=== PATIENT | male | born 1955 | race Caucasian/White ===

== ENCOUNTER 2016-07-19 18:21 | Emergency (ER) | payer MEDICAID ==
--- NOTE | 2016-07-19 19:00 | EDPRACDOC ---
- General Information Stated Complaint: CHEST PAIN Time Seen by Provider: 07/19/16 18:38 Home Medications: Home Medications Ageless Male 2 tab PO .DAILY SEE COMMENTS 05/15/14 Vitamin E [Vitamin E 400 International Units Per Cap] 400 unit PO .SEE COMMENTS 05/15/14 See Comments 0 mg PO .SEE COMMENTS 05/29/16 Allergies/Adverse Reactions: Allergies Allergy/AdvReac Type Severity Reaction Status Date / Time hydrocodone [Hydrocodone] Allergy Severe Itching Verified 05/29/16 12:36 - History of Present Illness Onset: 2 HOURS AGO HPI: CHEST PAIN, SUBSTERNAL, NONRADIATING. NO ALLEVIATING OR AGGRAVATING FACTORS NO ASSOCIATED SYMPTOMS NO DYSPNEA AND NO PALPITATIONS NO DIAPHORESIS NO NAUSEA VOMITING. NO FEVER CHILLS OR SHORTNESS OF BREATH, OR BODY ACHES. Chest Pain Location: Reports: Substernal Pain Radiation: Reports: None Symptoms Occur: Reports: Gradually, At Rest Cardiac Risk Factors: Reports: Smoker, Hypertension Cardiac History of: Reports: Similar Pain in Past Pain Status: Present Now (MILD) Pain Severity: Mild Pain Worsens With: Reports: Nothing Pain Improves With: Reports: Nothing ED Past Medical History - History Reviewed Yes Nurses notes reviewed and agree except as marked - Patient Medical History Neurological History: Reports: Cerebrovascular Accident, Other (POOR MEMORY AND COGNITION SECONDARY TO EXCESSIVE ALCOHOL ABUSE FOR YEARS. REQUIRING PRISON FACILITY PLACEMENT.) Cardiac History: Reports: Congestive Heart Failure, Other (TRANSIENT THIRD- DEGREE HEART BLOCK (NOT A PACEMAKER CANDIDATE)) Respiratory History: Reports: COPD, Emphysema. Denies: Asthma, Bronchitis GI/ History: Reports: Renal (Kidney) Cancer, Diverticulosis, Pancreatitis, BPH Musculoskeletal History: Reports: Osteoarthritis Psychological History: Denies: Depression, Anxiety, Substance Use Disorder Systemic History: Reports: Cancer (R KIDNEY, PROSTATE). Denies: Diabetes Surgical History: Reports: Cholecystectomy, Other (L clavicle fracture, ORIF L hip fracture) - Family Medical History Reports: Hypertension, Diabetes, Cancer, Respiratory Disorders. Denies: Stroke , Cardiac Disorders - Social Medical History Smoking Status: Heavy tobacco smoker (5 or more cigarettes/day or daily pipe/ cigar) (1-2 ppd x 45 yrs) Social History: Denies: Benzodiazipine Use, Cocaine Use, Methadone Use, Substance Use Disorder ETOH: Alcoholic (IN THE PAST.) Substance Abuse: None Lives With: Other Lives In: Assisted Facility EDM Review of Systems - Review of Systems ROS Negative Except as Marked: Yes All systems reviewed and were negative except as marked - Physical Exam Constitutional: No apparent distress, Alert, Cachectic Oriented to: Time, Person, Place Last recorded Vital Signs: Oxygen Pulse Oxygen Saturation O2 Device Oxygen Flow Rate Fraction of Inspired Oxygen ( FIO2) - HEENT Head: Normal ( normocephalic) Eye Exam: Normal (PERRL, EOMI, Sclera white) Oropharynx: Normal (Pharynx:Moist without exudate,Gums-no swelling) Nose: No Symptoms Reported (septum midline) Neck: Normal (FROM, trachea at midline) - Respiratory/Cardiovascular Respiratory: Normal - CTA (BBS clear to auscultation without adventitious sounds ) Cardiovascular: Normal (RRR without murmur, gallop or rub) - GI Auscultation: Normal (NABS) Palpation: Normal (Soft,No rebound or guarding, non distended) Tenderness: Non tender Botello's Sign: Negative - Musculoskeletal Back: Normal (Non-Tender) Extremities: Normal (Normal tone, Pulses 2+ No cyanosis or edema, FROM) - Integumentary Skin: Normal, Warm, Dry Lymphatics: Normal (no adenopathy) - Neurologic Memory Impaired: Normal Motor Function: Normal (Normal tone, Pulses 2+ No cyanosis or edema, FROM) Cranial Nerve: Normal (CN II-X11 intact sensation, strength 5/5) Cerebellar: Normal Mood Description: Normal Perception: Normal - Action ASA given in the ED: Yes - Results 07/19/16 18:50 07/19/16 18:50 - EKG EKG #1 EKG Time: 18:22 -: Yes EKG interpreted by mt Rate: bpm: 75 [place]: Normal Rhythm: NSR Block: RBBB Hypertrophy: None ST: Normal Comparison: 05/29/16 (NO SIGNIFICANT CHANGE) - Diagnostic Imaging Chest Image interpreted by: Radiologist Patient Name: ANDREW NDIAYE LOC: ED : 1955 AGE: 60 Order Date:07/19/16 Date of Service:01/26 Report # [id number] Ord Physician: Cathleen Dang MD Exam # [id number] Emergency Physician: Cathleen Dang MD Exam(s): [id number] RAD/DG CHEST PORTABLE CLINICAL DATA: Chest pain EXAM: PORTABLE CHEST - 1 VIEW COMPARISON: None. FINDINGS: The heart size and mediastinal contours are within normal limits. Both lungs are clear. The visualized skeletal structures are unremarkable. IMPRESSION: No active disease. Electronically Signed By: Brian Marion M.D. On: 07/19/2016 19:50 Electronically Signed By: Brian Marion MD Electronically Signed Date/Time: [id number] Dictate Date/Time: 07/19/161933 Technologist: Mitzi Bledsoe Transcribed By: Skyler Transcribed Date/Time: 07/19/16 1950 - Departure Disposition: Assisted Facility Condition: Stable Final Diagnosis: Atypical chest pain Instructions: Chest Pain (ED), Chest Wall Pain Education/Counseling Given To: Patient Education/Counseling Given Regarding: Diagnosis, Treatment, Prognosis Referrals: Hank Martin MD [Primary Care Provider] - One Week
[2016-07-19 19:01] VITALS: BMI 19.5
[2016-07-19 19:02] LABS: AUTOMATED BASOPHIL 1.5 % (0-2); AUTOMATED EOSINOPHIL 3.4 % (0-5); AUTOMATED LYMPH 34.4 % (17-44); AUTOMATED MONOCYTE 9.9 % (3-10); AUTOMATED NEUTROPHIL 50.8 % (45-76); MPV 8.8 fL (7.4-10.4)
[2016-07-19 19:11] LABS: BLOOD UREA NITROGEN 26 MG/DL (9-20); CALCIUM 9.3 MG/DL (8.4-10.2); CALCULATED OSMOLALITY 277 MOs/Kg (270-290); CHLORIDE 104 mEq/L (98-107); GLUCOSE 81 MG/DL (70-99); SODIUM LEVEL 142 mEq/L (137-146); TOTAL PROTEIN 7.1 G/DL (6.3-8.2)
[2016-07-19 19:31] LABS: PT-INR 1.1
--- NOTE | 2016-07-19 19:52 | DIRPT ---
CLINICAL DATA: Chest pain EXAM: PORTABLE CHEST - 1 VIEW COMPARISON: None. FINDINGS: The heart size and mediastinal contours are within normal limits. Both lungs are clear. The visualized skeletal structures are unremarkable. IMPRESSION: No active disease. Electronically Signed By: Brian Marion M.D. On: 07/19/2016 19:50
[2016-07-19] MEDS ORDERED: ASPIRIN (CHEWABLE) 81 MG TAB PO ONE (21:04)
[2016-07-19 22:20] VITALS: PULSE 72
[2016-07-19 23:48] VITALS: BP 152/75; TEMP 98.1
== END 2016-07-19 23:48 ==
LOC: ED 18:21
DX: R07.89 Other chest pain (principal); I50.9 Heart failure, unspecified; J44.9 Chronic obstructive pulmonary disease, unspecified; Z86.73 Personal history of transient ischemic attack (TIA), and cerebral infarction without residual deficits; F17.200 Nicotine dependence, unspecified, uncomplicated
CPT/HCPCS: 36415; 71010; 80053; 84484; 85025; 85379; 85610; 85730; 93005; 99285; J3490